=== PATIENT | male | born 1940 | race Caucasian/White ===

== ENCOUNTER 2018-01-18 13:47 | Inpatient (IN) | payer OTHER ==
[~2018-01-18] VITALS: Ht 185.4 cm; Wt 74.8 kg
[~2018-01-18 13:47] MED LIST: BACTRIM DS TAB1 EACH PO
[2018-01-18 13:50] VITALS: BP 138/77
[2018-01-18 16:13] LABS: URINE BILIRUBIN NEGATIVE (Negative); URINE BLOOD TRACE (Negative); URINE COLOR YELLOW; URINE GLUCOSE-RANDOM* NEGATIVE (Negative); URINE KETONES NEGATIVE (Negative); URINE NITRITE-REFLEX NEGATIVE (Negative); URINE PROTEIN (DIPSTICK) TRACE (Negative); URINE UROBILINOGEN 0.2 E.U./dl (0.2-1.0)
[2018-01-18 16:14] LABS: URINE LEUKOCYTES-REFLEX 3+ (Negative)
[2018-01-18 16:15] LABS: URINE CLARITY SL HAZY
[2018-01-18 16:20] LABS: ABSOLUTE NEUTROPHILS 8.9 thou/uL (1.4-8.2); BASOPHILS 0.6 % (0.0-2.0); EOSINOPHILS 0.6 % (0.0-3.0); HEMATOCRIT 37.8 % (42.0-52.0); HEMOGLOBIN 12.9 gm/dL (14.0-18.0); LYMPHOCYTES 4.4 % (24.0-44.0); MCH 34.4 pg (26.0-34.0); MCHC 34.2 g/dL (28.0-37.0); MCV 100.6 fL (80.0-100.0); MONOCYTES 4.5 % (1.0-8.0); PLATELET COUNT 359 thou/uL (150-400); POLYS 89.9 % (36.0-66.0); RBC 3.76 mil/uL (4.50-6.00); RDW 13.6 % (10.5-14.5); WBC 9.9 thou/uL (4.0-11.0)
[2018-01-18 16:21] LABS: BACTERIA-REFLEX 1-9 Few /HPF (None Seen); SQUAMOUS None Seen /LPF (0-3); URINE RBC 0-2 Rare /HPF (0-2); URINE WBC-REFLEX >25 Many /HPF (0-5)
[2018-01-18 16:22] LABS: CASTS None Seen /LPF (None Seen); CRYSTALS None Seen /LPF (None Seen)
[2018-01-18 16:28] LABS: CREATININE 1.2 mg/dL (0.7-1.3); POTASSIUM 3.9 mmol/L (3.5-5.1)
[2018-01-18 16:33] LABS: ALBUMIN 3.8 g/dL (3.4-5.0); TOTAL BILIRUBIN 0.4 mg/dL (<0.1-1.0); TOTAL PROTEIN 7.6 g/dL (6.4-8.2)
[2018-01-18 16:52] VITALS: BP 130/72
[2018-01-18] MEDS ORDERED: ZOLOFT50 MG PO (17:32)
[2018-01-18 17:44] VITALS: BP 131/72
[2018-01-18 18:16] LABS: TSH 1.01 uIU/mL (0.358-3.740)
[2018-01-18 18:20] VITALS: BP 149/87
[2018-01-19 02:55] VITALS: BP 120/69
[2018-01-19 04:48] LABS: HEMATOCRIT 37.3 % (42.0-52.0); HEMOGLOBIN 12.5 gm/dL (14.0-18.0); MCH 33.9 pg (26.0-34.0); MCHC 33.6 g/dL (28.0-37.0); MCV 100.8 fL (80.0-100.0); RBC 3.7 mil/uL (4.50-6.00); RDW 13.9 % (10.5-14.5); WBC 8.8 thou/uL (4.0-11.0)
[2018-01-19 05:01] LABS: CALCIUM 9.1 mg/dL (8.5-10.1); CREATININE 1.1 mg/dL (0.7-1.3); POTASSIUM 4.2 mmol/L (3.5-5.1)
[2018-01-19 09:36] VITALS: BP 125/94
[2018-01-19 10:20] VITALS: BP 125/94
[2018-01-19 10:22] VITALS: BP 125/94
[2018-01-19 14:53] VITALS: BP 108/65
[2018-01-19 20:23] VITALS: BP 103/43
[2018-01-20 05:54] VITALS: BP 137/66
[2018-01-20 08:00] VITALS: BP 109/59
[2018-01-20 14:22] VITALS: BP 109/59
[2018-01-20 14:48] VITALS: BP 109/59
== END 2018-01-20 14:56 | disposition home health service (06) | DRG 682 ==
LOC: ER 13:47 → EROBS 16:43 → 4W 16:43 → ENTRNSPT 01-20 14:31 → EDTRNSPTSTS 01-20 14:35 → 4W 01-20 14:56
PROVIDERS: Internal Medicine; Nurse Practitioner
DX: N17.9 Acute kidney failure, unspecified (principal); E43 Unspecified severe protein-calorie malnutrition; E87.1 Hypo-osmolality and hyponatremia; N39.0 Urinary tract infection, site not specified; F17.210 Nicotine dependence, cigarettes, uncomplicated; F32.9 Major depressive disorder, single episode, unspecified; S61.412A Laceration without foreign body of left hand, initial encounter; S01.81XA Laceration without foreign body of other part of head, initial encounter; W01.0XXA Fall on same level from slipping, tripping and stumbling without subsequent striking against object, initial encounter; Y93.89 Activity, other specified; Y92.89 Other specified places as the place of occurrence of the external cause; Y99.8 Other external cause status; Z79.899 Other long term (current) drug therapy
CPT/HCPCS: 10040